=== PATIENT | male | born 1990 | race Caucasian/White ===

== ENCOUNTER 2022-02-08 09:45 | Outpatient (CLI) | payer BC ==
[2022-02-08] MEDS ORDERED: Magnevist 469MG/ML 20 ML VIAL ONE (15:44)
== END 2022-02-08 09:46 | disposition home or self-care (01) ==
LOC: CSHMRI 09:45
PROVIDERS: ATTEND Student in an Organized Health Care Education/Training Program
DX: K83.8 Other specified diseases of biliary tract (principal); K76.0 Fatty (change of) liver, not elsewhere classified; R16.2 Hepatomegaly with splenomegaly, not elsewhere classified; G95.0 Syringomyelia and syringobulbia
CPT/HCPCS: 74183; A9579

== ENCOUNTER 2022-03-08 14:40 | Outpatient (CLI) | payer BC | END 2022-03-08 14:41 | disposition home or self-care (01) | LOC: CSHMRI 14:40 | PROVIDERS: ATTEND Student in an Organized Health Care Education/Training Program | DX: G95.0 Syringomyelia and syringobulbia (principal) | CPT/HCPCS: 72157 ==